=== PATIENT | male | born 1955 | race Caucasian/White ===

== ENCOUNTER 2020-05-04 11:01 | Emergency (ER) | payer OTHER ==
--- NOTE | 2020-05-04 11:13 | ERPHSYRPT ---
- History of Present Illness Time Seen by Provider: 05/04/20 11:13 Source: patient Exam Limitations: no limitations Physician History: This is a 64-year-old white male who has known exposure to his who was tested positive for COVID-19. In the last few days patient has had a mild cough. His biggest concern is the muscle and bony aches as well as a headache. He feels nausea but no vomiting. He had mild diarrhea that was short-lived on the first day of his symptoms. He has no chest pain. Timing/Duration: day(s) (Last couple of days) Severity: mild Associated Symptoms: shortness of breath (Mild), cough (Mild), headaches Allergies/Adverse Reactions: hydromorphone HCl [From Dilaudid] Adverse Reaction (Mild, Verified 07/16/12 08:11) Home Medications: Lansoprazole [Prevacid] 30 mg PO DAILY 07/16/12 [History] Tamsulosin HCl 0.4 mg [Flomax 0.4 MG] 0.4 mg PO HS 07/16/12 [History] Hx Tetanus, Diphtheria Vaccination/Date Given: Yes Hx Influenza Vaccination/Date Given: No Hx Pneumococcal Vaccination/Date Given: No Travel Risk - International Travel Have you traveled outside of the country in past 3 weeks: No - Coronavirus Screening Are you exhibiting any of the following symptoms?: Yes Symptoms: Cough: New Onset, Shortness of Breath, Headaches/Body Aches/Fatigue Close contact with a COVID-19 positive Pt in past 14-21 Days: No - Review of Systems Constitutional: No Symptoms Eyes: No Symptoms Ears, Nose, & Throat: No Symptoms Respiratory: Cough, Dyspnea (Mild) Cardiac: No Symptoms Abdominal/Gastrointestinal: No Symptoms Genitourinary Symptoms: No Symptoms Musculoskeletal: Arthralgias, Myalgias Skin: No Symptoms Neurological: No Symptoms Psychological: No Symptoms Endocrine: No Symptoms Hematologic/Lymphatic: No Symptoms Immunological/Allergic: No Symptoms All Other Systems: Reviewed and Negative - Past Medical History Pertinent Past Medical History: Yes Neurological History: No Pertinent History ENT History: Other (see history of present illness) Cardiac History: No Pertinent History Respiratory History: No Pertinent History Endocrine Medical History: No Pertinent History Musculoskeletal History: No Pertinent History GI Medical History: No Pertinent History History: No Pertinent History Psycho-Social History: No Pertinent History Male Reproductive Disorders: Prostate Problems - Past Surgical History Past Surgical History: No - Social History Smoking Status: Never smoker Drug Use: none Patient Lives Alone: No - Nursing Vital Signs Nursing Vital Signs: Initial Vital Signs Temperature 98.9 F 05/04/20 11:19 Pulse Rate 72 05/04/20 11:19 Respiratory Rate 22 05/04/20 11:19 Blood Pressure 140/77 05/04/20 11:19 O2 Sat by Pulse Oximetry 96 05/04/20 11:19 Pain Scale Pain Intensity 4 - Physical Exam General Appearance: no apparent distress, alert Eye Exam: PERRL/EOMI, eyes nml inspection Ears, Nose, Throat Exam: normal ENT inspection, moist mucous membranes Neck Exam: normal inspection, non-tender, supple, full range of motion Respiratory Exam: normal breath sounds, lungs clear, airway intact, No chest tenderness, No respiratory distress Cardiovascular Exam: regular rate/rhythm, normal heart sounds, normal peripheral pulses Gastrointestinal/Abdomen Exam: soft, normal bowel sounds, No tenderness Rectal Exam: not done Back Exam: normal inspection, normal range of motion, No CVA tenderness, No vertebral tenderness Extremity Exam: normal inspection, normal range of motion, pelvis stable Neurologic Exam: alert, oriented x 3, cooperative, butcher fish II-XII nml as tested, normal mood/affect, nml cerebellar function, nml station & gait, sensation nml Skin Exam: normal color, warm, dry Lymphatic Exam: No adenopathy SpO2 Interpretation: normal O2 Delivery: Room Air - Course Nursing assessment & vital signs reviewed: Yes EKG Interpreted by Me: RATE (66), Other (Ventricular premature complex.) Ordered Tests: Active Orders 24 hr Category Date Time Status Roller Operator STAT Care 05/04/20 11:32 Active EKG-ER Only STAT Care 05/04/20 11:32 Active IV Insertion STAT Care 05/04/20 11:32 Active Isolation, Initiate & Maintain STAT Care 05/04/20 11:32 Active Pulse Oximetry (ED) ROUTINE Care 05/04/20 11:32 Active CHEST 1 VIEW (PORTABLE) Stat Exams 05/04/20 11:33 Completed CHEST WITH CONTRAST [CT] Stat Exams 05/04/20 13:33 Completed BLOOD CULTURE Stat Lab 05/04/20 12:16 Received CBC W DIFF Stat Lab 05/04/20 12:16 Completed CMP Stat Lab 05/04/20 12:16 Completed D-DIMER QUANTITATIVE Stat Lab 05/04/20 12:16 Completed Ferritin Stat Lab 05/04/20 12:16 Completed INFLUENZA A+B BARNEY Stat Lab 05/04/20 12:16 Completed LDH-LACTATE DEHYDROGENASE Stat Lab 05/04/20 12:16 Completed Lactic Acid Stat Lab 05/04/20 12:16 Completed Coffey Screen Stat Lab 05/04/20 12:16 Completed PROTIME WITH INR Stat Lab 05/04/20 12:16 Completed TROPONIN Q3H Lab 05/04/20 12:16 Completed TROPONIN Q3H Lab 05/04/20 14:47 Completed TROPONIN Q3H Lab 05/04/20 17:45 Ordered TROPONIN Q3H Lab 05/04/20 20:45 Ordered TROPONIN Q3H Lab 05/04/20 23:45 Ordered Medication Summary Discontinued Medications Generic Name Dose Route Start Last Admin Trade Name Freq PRN Reason Stop Dose Admin Sodium Chloride 1,000 mls @ 999 mls/hr 05/04/20 11:33 05/04/20 13:29 Sodium Chloride 0.9% 1000 Ml IV 05/04/20 12:33 Infused .Q1H1M STA Infusion Sodium Chloride Confirm 05/04/20 13:37 Sodium Chloride 0.9% 1000 Ml Administered 05/04/20 13:38 Dose 1,000 mls @ ud .ROUTE .STK-MED ONE Meperidine HCl 25 mg 05/04/20 13:32 05/04/20 13:42 Demerol 25mg Syringe IV 05/04/20 13:33 25 mg STAT ONE Administration Meperidine HCl Confirm 05/04/20 13:37 Demerol 25mg Syringe Administered 05/04/20 13:38 Dose 25 mg .ROUTE .STK-MED ONE Meperidine HCl 25 mg 05/04/20 15:35 05/04/20 15:52 Demerol 25mg Syringe IV 05/04/20 15:36 25 mg STAT ONE Administration Meperidine HCl Confirm 05/04/20 15:51 Demerol 25mg Syringe Administered 05/04/20 15:52 Dose 25 mg .ROUTE .STK-MED ONE Ondansetron HCl 4 mg 05/04/20 13:31 05/04/20 13:41 Zofran 4 Mg/2 Ml Vial IV 05/04/20 13:32 4 mg STAT ONE Administration Ondansetron HCl Confirm 05/04/20 13:36 Zofran 4 Mg/2 Ml Vial Administered 05/04/20 13:37 Dose 4 mg .ROUTE .STK-MED ONE Lab/Rad Data: Laboratory Result Diagrams 05/04/20 12:16 05/04/20 12:16 Laboratory Results 05/04/20 05/04/20 05/04/20 Range/Units 14:47 12:16 12:16 WBC (4.0-10.5) K/mm3 RBC (4.1-5.6) M/mm3 Hgb (12.5-18.0) gm/dl Hct (42-50) % MCV (78-100) fl MCH (26-32) pg MCHC (32-36) g/dl RDW (11.5-14.0) % Plt Count (150-450) K/mm3 MPV (7.5-11.0) fl Gran % (36.0-66.0) % Eos # (Auto) (0-0.5) Absolute Lymphs (auto) (1.0-4.6) Absolute Monos (auto) (0.0-1.3) Lymphocytes % (24.0-44.0) % Monocytes % (0.0-12.0) % Eosinophils % (0.00-5.0) % Basophils % (0.0-0.4) % Absolute Granulocytes (1.4-6.9) Basophils # (0-0.4) PT (8.83-12.87) SECONDS INR (0.8-3.0) D-Dimer (215-500) ng/mL Sodium (137-145) mmol/L Potassium (3.5-5.1) mmol/L Chloride (98-107) mmol/L Carbon Dioxide (22-30) mmol/L Anion Gap (5-15) MEQ/L BUN (9-20) mg/dL Creatinine (0.66-1.25) mg/dL Estimated GFR ML/MIN Glucose (74-106) mg/dL Lactic Acid (0.4-2.0) Calcium (8.4-10.2) mg/dL Ferritin 21.4 (17.9-464) ng/mL Total Bilirubin (0.2-1.3) mg/dL AST (17-59) U/L ALT (0-50) U/L Alkaline Phosphatase (38-126) U/L Lactate Dehydrogenase (120-246) U/L Troponin I < 0.012 (0.000-0.034) ng/mL Serum Total Protein (6.3-8.2) g/dL Albumin (3.5-5.0) g/dL Monoscreen POSITIVE (Negative) Influenza Type A Ag (NEGATIVE) Influenza Type B Ag (NEGATIVE) Group A Strep Antibody (NEGATIVE) Slides for Path Review 05/04/20 05/04/20 05/04/20 Range/Units 12:16 12:16 12:16 WBC (4.0-10.5) K/mm3 RBC (4.1-5.6) M/mm3 Hgb (12.5-18.0) gm/dl Hct (42-50) % MCV (78-100) fl MCH (26-32) pg MCHC (32-36) g/dl RDW (11.5-14.0) % Plt Count (150-450) K/mm3 MPV (7.5-11.0) fl Gran % (36.0-66.0) % Eos # (Auto) (0-0.5) Absolute Lymphs (auto) (1.0-4.6) Absolute Monos (auto) (0.0-1.3) Lymphocytes % (24.0-44.0) % Monocytes % (0.0-12.0) % Eosinophils % (0.00-5.0) % Basophils % (0.0-0.4) % Absolute Granulocytes (1.4-6.9) Basophils # (0-0.4) PT (8.83-12.87) SECONDS INR (0.8-3.0) D-Dimer (215-500) ng/mL Sodium (137-145) mmol/L Potassium (3.5-5.1) mmol/L Chloride (98-107) mmol/L Carbon Dioxide (22-30) mmol/L Anion Gap (5-15) MEQ/L BUN (9-20) mg/dL Creatinine (0.66-1.25) mg/dL Estimated GFR ML/MIN Glucose (74-106) mg/dL Lactic Acid (0.4-2.0) Calcium (8.4-10.2) mg/dL Ferritin (17.9-464) ng/mL Total Bilirubin (0.2-1.3) mg/dL AST (17-59) U/L ALT (0-50) U/L Alkaline Phosphatase (38-126) U/L Lactate Dehydrogenase (120-246) U/L Troponin I < 0.012 (0.000-0.034) ng/mL Serum Total Protein (6.3-8.2) g/dL Albumin (3.5-5.0) g/dL Monoscreen (Negative) Influenza Type A Ag NEGATIVE (NEGATIVE) Influenza Type B Ag NEGATIVE (NEGATIVE) Group A Strep Antibody NOT DETECTED (NEGATIVE) Slides for Path Review 05/04/20 05/04/20 05/04/20 Range/Units 12:16 12:16 12:16 WBC (4.0-10.5) K/mm3 RBC (4.1-5.6) M/mm3 Hgb (12.5-18.0) gm/dl Hct (42-50) % MCV (78-100) fl MCH (26-32) pg MCHC (32-36) g/dl RDW (11.5-14.0) % Plt Count (150-450) K/mm3 MPV (7.5-11.0) fl Gran % (36.0-66.0) % Eos # (Auto) (0-0.5) Absolute Lymphs (auto) (1.0-4.6) Absolute Monos (auto) (0.0-1.3) Lymphocytes % (24.0-44.0) % Monocytes % (0.0-12.0) % Eosinophils % (0.00-5.0) % Basophils % (0.0-0.4) % Absolute Granulocytes (1.4-6.9) Basophils # (0-0.4) PT 12.5 (8.83-12.87) SECONDS INR 1.11 (0.8-3.0) D-Dimer 651 H* (215-500) ng/mL Sodium 138 (137-145) mmol/L Potassium 4.4 (3.5-5.1) mmol/L Chloride 107 (98-107) mmol/L Carbon Dioxide 24 (22-30) mmol/L Anion Gap 12.0 (5-15) MEQ/L BUN 11 (9-20) mg/dL Creatinine 0.83 (0.66-1.25) mg/dL Estimated GFR > 60.0 ML/MIN Glucose 97 (74-106) mg/dL Lactic Acid 1.2 (0.4-2.0) Calcium 8.7 (8.4-10.2) mg/dL Ferritin (17.9-464) ng/mL Total Bilirubin 0.40 (0.2-1.3) mg/dL AST 40 (17-59) U/L ALT 47 (0-50) U/L Alkaline Phosphatase 111 (38-126) U/L Lactate Dehydrogenase 150 (120-246) U/L Troponin I (0.000-0.034) ng/mL Serum Total Protein 6.6 (6.3-8.2) g/dL Albumin 3.7 (3.5-5.0) g/dL Monoscreen (Negative) Influenza Type A Ag (NEGATIVE) Influenza Type B Ag (NEGATIVE) Group A Strep Antibody (NEGATIVE) Slides for Path Review 05/04/20 Range/Units 12:16 WBC 6.1 (4.0-10.5) K/mm3 RBC 4.56 (4.1-5.6) M/mm3 Hgb 13.9 (12.5-18.0) gm/dl Hct 40.5 L (42-50) % MCV 88.8 (78-100) fl MCH 30.5 (26-32) pg MCHC 34.3 (32-36) g/dl RDW 12.7 (11.5-14.0) % Plt Count 214 (150-450) K/mm3 MPV 10.2 (7.5-11.0) fl Gran % 72.1 H (36.0-66.0) % Eos # (Auto) 0.05 (0-0.5) Absolute Lymphs (auto) 0.57 L (1.0-4.6) Absolute Monos (auto) 1.05 (0.0-1.3) Lymphocytes % 9.4 L (24.0-44.0) % Monocytes % 17.2 H (0.0-12.0) % Eosinophils % 0.8 (0.00-5.0) % Basophils % 0.5 (0.0-0.4) % Absolute Granulocytes 4.39 (1.4-6.9) Basophils # 0.03 (0-0.4) PT (8.83-12.87) SECONDS INR (0.8-3.0) D-Dimer (215-500) ng/mL Sodium (137-145) mmol/L Potassium (3.5-5.1) mmol/L Chloride (98-107) mmol/L Carbon Dioxide (22-30) mmol/L Anion Gap (5-15) MEQ/L BUN (9-20) mg/dL Creatinine (0.66-1.25) mg/dL Estimated GFR ML/MIN Glucose (74-106) mg/dL Lactic Acid (0.4-2.0) Calcium (8.4-10.2) mg/dL Ferritin (17.9-464) ng/mL Total Bilirubin (0.2-1.3) mg/dL AST (17-59) U/L ALT (0-50) U/L Alkaline Phosphatase (38-126) U/L Lactate Dehydrogenase (120-246) U/L Troponin I (0.000-0.034) ng/mL Serum Total Protein (6.3-8.2) g/dL Albumin (3.5-5.0) g/dL Monoscreen (Negative) Influenza Type A Ag (NEGATIVE) Influenza Type B Ag (NEGATIVE) Group A Strep Antibody (NEGATIVE) Slides for Path Review YES - Progress Progress: improved, pain not gone completely, re-examined Progress Note: 05/04/20 13:31 Chest x-ray shows no acute cardiopulmonary process. 05/04/20 16:38 CAT scan of the chest with intravenous contrast is negative for pulmonary embolus. There is a small patchy left upper lobe airspace disease. There is to intermittent right lower lobe noncalcified micronodule. This finding was discussed with the patient. Counseled pt/family regarding: lab results, diagnosis, need for follow-up, rad results - Departure Departure Disposition: Home Clinical Impression: Mononucleosis, Headache, Left upper lobe pulmonary infiltrate Condition: Stable Critical Care Time: No Referrals: DULCE MARIA MACHADO [Primary Care Provider] - Additional Instructions: Drink plenty of fluids. Use ibuprofen for pain control as well as fever control. Quarantine yourself until you find out the results of your COVID-19 test. You will get a call from your primary care physician most likely in the early part of next week. Prescriptions: Hydrocodone/Acetaminophen [Hydrocodone-Acetamn 7.5-325/15] 10 ml PO Q8H PRN PRN #120 solution MDD 30 ml PRN Reason: Cough Levofloxacin [Levaquin 500 MG Tablet] 500 mg PO DAILY #7 tablet
[2020-05-04] MEDS ORDERED: Sodium Chloride 0.9% 1000 ML 1,000 ML IV STA (11:33)
--- NOTE | 2020-05-04 12:14 | XRAY ---
Indication: Cough, congestion, and short of breath. Suspect Covid 19 exposure. Comparison: July 16, 2012. Portable chest again demonstrates normal heart and lungs. Bony thorax intact. No new/acute findings.
[2020-05-04 12:19] LABS: Absolute Neutrophil Ct (ANC) 4.39 (1.4-6.9); BASOPHIL % 0.5 % (0.0-0.4); Basophil (Absolute #) 0.03 (0-0.4); Eosinophil % 0.8 % (0.00-5.0); Eosinophil (Absolute #) 0.05 (0-0.5); Hematocrit 40.5 % (42-50); Hemoglobin 13.9 gm/dl (12.5-18.0); Lymphocyte (Absolute #) 0.57 (1.0-4.6); Lymphocytes % 9.4 % (24.0-44.0); Mean Cell Volume 88.8 fl (78-100); Mean Corpuscular Hemoglobin 30.5 pg (26-32); Mean Corpuscular Hgb Concent. 34.3 g/dl (32-36); Mean Platelet Volume 10.2 fl (7.5-11.0); Monocyte (Absolute #) 1.05 (0.0-1.3); Monocytes % 17.2 % (0.0-12.0); Neutrophil % 72.1 % (36.0-66.0); Platelet Count 214 K/mm3 (150-450); Red Blood Count 4.56 M/mm3 (4.1-5.6); Red Cell Distribution Width 12.7 % (11.5-14.0); White Blood Count 6.1 K/mm3 (4.0-10.5)
[2020-05-04 12:34] LABS: INR 1.11 (0.8-3.0); PROTIME 12.5 SECONDS (8.83-12.87)
[2020-05-04 12:41] LABS: INFLUENZA A NEGATIVE (NEGATIVE); INFLUENZA B NEGATIVE (NEGATIVE)
[2020-05-04 12:43] LABS: ALBUMIN 3.7 g/dL (3.5-5.0); ALKALINE PHOSPHATASE 111 U/L (38-126); BLOOD UREA NITROGEN 11 mg/dL (9-20); CHLORIDE 107 mmol/L (98-107); Calcium 8.7 mg/dL (8.4-10.2); Carbon Dioxide 24 mmol/L (22-30); Creatinine 1 0.83 mg/dL (0.66-1.25); EST GLOMERULAR FILTRATION RATE > 60.0 ML/MIN; Glucose 97 mg/dL (74-106); LDH-LACTATE DEHYDROGENASE 150 U/L (120-246); Potassium 4.4 mmol/L (3.5-5.1); SGOT/AST 40 U/L (17-59); SGPT/ALT 47 U/L (0-50); SODIUM 138 mmol/L (137-145); Total Protein 6.6 g/dL (6.3-8.2)
[2020-05-04] MEDS ORDERED: Zofran 4 MG/2 ML VIAL IV ONE (13:31)
[2020-05-04] MEDS ORDERED: DEMEROL 25MG SYRINGE IV ONE ×2 (13:32→15:35)
[2020-05-04] MEDS ORDERED: Zofran 4 MG/2 ML VIAL ONE (13:36)
[2020-05-04] MEDS ORDERED: DEMEROL 25MG SYRINGE ONE ×2 (13:37→15:51)
[2020-05-04] MEDS ORDERED: Sodium Chloride 0.9% 1000 ML 1,000 ML ONE (13:37)
[2020-05-04 13:46] LABS: Slide Review 1 YES
[2020-05-04 15:34] VITALS: BP 126/80; PULSE 65; O2SAT 98
--- NOTE | 2020-05-04 16:27 | XRAY ---
Indication: Cough and short of breath. Elevated d-dimer. Multiple contiguous axial images obtained through the chest using 100 cc Isovue 370 contrast and PE protocol. Comparison: None There is good opacification of the pulmonary arteries including lobar and segmental branches. No pulmonary embolus. Heart is not enlarged. Aorta is normal in course and caliber. No pathologic mediastinal/hilar lymphadenopathy. Lungs hyperinflated with minimal bilateral dependent atelectasis and minimal left base fibrosis/scarring. Peripheral left upper lobe demonstrate small 2 cm focus of patchy airspace disease. Right lower lobe demonstrates two indeterminant 5-6 mm noncalcified nodules with irregular margins adjacent to the major fissure. No consolidation or effusion. Bony thorax intact with minimal degenerative changes throughout the spine. Limited upper abdomen demonstrates mild fatty liver and 6 mm hepatic cyst. Impression: 1. Negative pulmonary embolus. 2. Small patchy left upper lobe airspace disease. 3. Two indeterminant right lower lobe noncalcified micronodules. Outside comparison studies recommended if available. If not, recommend follow-up per Fleischner guidelines. 4. Incidental fatty liver and tiny hepatic cyst.
== END 2020-05-04 17:01 | disposition home or self-care (01) ==
LOC: ED 11:01
DX: B27.90 Infectious mononucleosis, unspecified without complication (principal); R51.9 Headache, unspecified; R91.8 Other nonspecific abnormal finding of lung field
CPT/HCPCS: 36000; 36415; 71045; 71260; 80053; 82728; 83605; 83615; 84484; 85025; 85379; 85610; 86308; 87040; 87400; 87651; 93005; 93041; 94760; 96360; 96374; 96375; 96376; 99285; U0003; J2175; J2405

== ENCOUNTER 2020-06-23 14:36 | Emergency (ER) | payer OTHER ==
[2020-06-23] MEDS ORDERED: Catapres 0.1 MG PO ONE (15:03)
--- NOTE | 2020-06-23 15:24 | XRAY ---
Indication: Chest discomfort. Comparison: May 04, 2020. Portable chest again demonstrates normal heart and lungs. Bony thorax intact. No new/acute findings.
[2020-06-23 15:30] LABS: Absolute Neutrophil Ct (ANC) 4.14 (1.4-6.9); BASOPHIL % 0.7 % (0.0-0.4); Basophil (Absolute #) 0.04 (0-0.4); Eosinophil % 1.1 % (0.00-5.0); Eosinophil (Absolute #) 0.07 (0-0.5); Hematocrit 41.6 % (42-50); Hemoglobin 13.8 gm/dl (12.5-18.0); Lymphocyte (Absolute #) 1.23 (1.0-4.6); Lymphocytes % 20.1 % (24.0-44.0); Mean Cell Volume 88.5 fl (78-100); Mean Corpuscular Hemoglobin 29.4 pg (26-32); Mean Corpuscular Hgb Concent. 33.2 g/dl (32-36); Monocyte (Absolute #) 0.63 (0.0-1.3); Monocytes % 10.3 % (0.0-12.0); Neutrophil % 67.8 % (36.0-66.0); Platelet Count 304 K/mm3 (150-450); Red Cell Distribution Width 13.4 % (11.5-14.0); White Blood Count 6.1 K/mm3 (4.0-10.5)
[2020-06-23 15:43] LABS: ALKALINE PHOSPHATASE 91 U/L (38-126); BLOOD UREA NITROGEN 15 mg/dL (9-20); CHLORIDE 105 mmol/L (98-107); Calcium 8.9 mg/dL (8.4-10.2); Carbon Dioxide 27 mmol/L (22-30); Creatinine 1 0.87 mg/dL (0.66-1.25); EST GLOMERULAR FILTRATION RATE > 60.0 ML/MIN; Glucose 95 mg/dL (74-106); SGOT/AST 30 U/L (17-59); SGPT/ALT 24 U/L (0-50); SODIUM 138 mmol/L (137-145); Total Protein 7.1 g/dL (6.3-8.2)
--- NOTE | 2020-06-23 15:48 | ERPHSYRPT ---
- History of Present Illness Historian: patient Exam Limitations: no limitations Patient Subjective Stated Complaint: chest pain with hypertension Triage Nursing Assessment: Pt drove self to the ER, vitals wnl, rates chest pain as 2-3/10, pulses normal, denies any new stressors, denies previous htn, skin n/w/d, doesn't appear to be in any distress Physician History: 65 yo wm w "chest tightness" x 3days that is mid-sternal wo radiation. He has mild nausea/dyspnea wo vomiting/diaphoresis. Pt is worried that his BP has been elevated but has no h/o HTN. Also denied were hyperlipidemia/DM/CAD-DE/family h/o CAD/tobacco use. He had CV19 around Thanksgiving but has recovered. Pt denies cough/fever. Timing/Duration: other (3 days) Quality: tightness Location: central Chest Pain Radiation: no radiation Severity of Pain-Max: moderate Severity of Pain-Current: mild Modifying Factors: Improves With: other (Worse w rest) Associated Symptoms: nausea, shortness of breath, No vomiting, No palpitations, No heartburn, No abdominal pain, No cough, No hurts to breathe, No diaphoresis, No chills, No fever, No fatigue, No weakness, No swelling/lump in chest, No syncope, No rash, No headache, No dizziness, No edema, No back pain Prior Chest Pain/Cardiac Workup: stress test Nitro Today/Relief: no nitro taken today Aspirin Treatment Today: no aspirin today Allergies/Adverse Reactions: hydromorphone HCl [From Dilaudid] Adverse Reaction (Mild, Verified 06/23/20 14:48) Home Medications: Tamsulosin HCl 0.4 mg [Flomax 0.4 MG] 0.4 mg PO HS 07/16/12 [History] Ergocalciferol (Vitamin D2) [Vitamin D2] 1,250 mcg PO DAILY 06/23/20 [History] Methimazole [Tapazole] 2.5 mg PO DAILY 06/23/20 [History] Multivitamin/Iron/Folic Acid [Cerovite Advanced Form Tab] 1 tab PO DAILY 06/23/20 [History] Omeprazole 40 mg PO DAILY 06/23/20 [History] Hx Tetanus, Diphtheria Vaccination/Date Given: Yes Hx Influenza Vaccination/Date Given: No Hx Pneumococcal Vaccination/Date Given: No Travel Risk - International Travel Have you traveled outside of the country in past 3 weeks: No - Coronavirus Screening Are you exhibiting any of the following symptoms?: No Close contact with a COVID-19 positive Pt in past 14-21 Days: No - Review of Systems Constitutional: No Symptoms Eyes: No Symptoms Ears, Nose, & Throat: No Symptoms Respiratory: No Symptoms Cardiac: Chest Pain, No Edema, No Palpitations, No Syncope, No Orthopnea, No PND Abdominal/Gastrointestinal: Nausea, No Abdominal Pain, No Vomiting, No Diarrhea, No Constipation, No Hematemesis, No Hematochezia, No Melena, No Dysphagia, No Appetite Changes Genitourinary Symptoms: No Dysuria, No Frequency, No Hematuria, No Hesitancy, No Incontinence, No Urgency, No Urinary Retention, No Flank Pain, No Testicle Pain, No Penile Discharge Musculoskeletal: No Arthralgias, No Back Pain, No Neck Pain, No Deformity, No Fall, No Injury, No Joint Redness, No Joint Pain, No Joint Swelling, No Myalgias Skin: No Cellulitis, No Decubiti, No Induration, No Pruritis, No Rash, No Skin Lesions, No Dryness Neurological: No Dizziness, No Focal Weakness, No Gait Changes, No Headache, No Irritability, No Lethargy, No Paralysis, No Parasthesia, No Seizure, No Sensory Changes, No Speech Changes, No Tics, No Tremors, No Vertigo Psychological: No Alcohol Abuse, No Drug Abuse, No Anxiety, No Depression, No Suicidal Ideations, No Homicidal Ideations, No Emotional Lability, No Hallucinations, No Memory Loss, No Mood Changes Endocrine: No Polyuria, No Polydipsia, No Hair Changes, No Cold Intolerance, No Excessive Sweating, No Goiter Hematologic/Lymphatic: No Anemia, No Blood Clots, No Easy Bleeding, No Gum Bleeding, No Easy Bruising, No Adenopathy Immunological/Allergic: No Eczema, No Food Allergy, No Grass Allergy, No Mold Allergy, No Pollen Allergy, No HIV/AIDS, No Transplant - Past Medical History Pertinent Past Medical History: Yes Neurological History: No Pertinent History ENT History: Other Cardiac History: No Pertinent History Respiratory History: No Pertinent History Endocrine Medical History: No Pertinent History Musculoskeletal History: No Pertinent History GI Medical History: No Pertinent History History: No Pertinent History Psycho-Social History: No Pertinent History Male Reproductive Disorders: Prostate Problems - Past Surgical History Past Surgical History: No - Social History Smoking Status: Former smoker Exposure to second hand smoke: No Drug Use: none Patient Lives Alone: No Significant Family History: no pertinent family hx - Nursing Vital Signs Nursing Vital Signs: Initial Vital Signs Temperature 97.7 F 06/23/20 14:38 Pulse Rate 60 06/23/20 14:38 Blood Pressure 143/90 06/23/20 14:38 O2 Sat by Pulse Oximetry 98 06/23/20 14:38 Pain Scale Pain Intensity 0 - Physical Exam General Appearance: no apparent distress, anxiety Eye Exam: PERRL/EOMI, eyes nml inspection Ears, Nose, Throat Exam: normal ENT inspection, TMs normal, pharynx normal, moist mucous membranes Neck Exam: normal inspection, non-tender, supple, full range of motion, No meningismus, No mass, No Brudzinski, No Kernig's, No carotid bruit Respiratory Exam: normal breath sounds, lungs clear, airway intact, No respiratory distress Cardiovascular Exam: regular rate/rhythm, normal heart sounds, normal peripheral pulses, capillary refill <2 sec, No murmur Gastrointestinal/Abdomen Exam: soft, normal bowel sounds, No tenderness Back Exam: normal inspection, normal range of motion, No CVA tenderness, No vertebral tenderness Extremity Exam: normal inspection, normal range of motion Neurologic Exam: alert, oriented x 3, cooperative, non destructive testing scientist II-XII nml as tested, normal mood/affect, nml cerebellar function, nml station & gait, sensation nml, No motor deficits, No sensory deficit, No disoriented Skin Exam: normal color, warm, dry, No rash Lymphatic Exam: No adenopathy SpO2 Interpretation: normal SpO2: 98 O2 Delivery: Room Air - Course Nursing assessment & vital signs reviewed: Yes EKG Interpreted by Me: RATE (Sinus javy/R56/Normal QT-QTc/Tall R wave V2/No ST changes) - Radiology Exams Chest X-ray Interpretation: Discussed w/ radiologist (NAD) - CT Exams Chest CT Interpretation: Discussed w/radiologist (CTA chest-no PE/Subtle B/L ground glass appearance) Ordered Tests: Active Orders 24 hr Category Date Time Status Ice Cream Mixer STAT Care 06/23/20 15:02 Completed EKG-ER Only STAT Care 06/23/20 15:02 Completed IV Insertion STAT Care 06/23/20 15:02 Completed CHEST 1 VIEW (PORTABLE) Stat Exams 06/23/20 15:02 Completed CHEST WITH CONTRAST [CT] Stat Exams 06/23/20 16:44 Taken CBC W DIFF Stat Lab 06/23/20 15:25 Completed CMP Stat Lab 06/23/20 15:25 Completed D-DIMER QUANTITATIVE Stat Lab 06/23/20 15:25 Completed NT PRO BNP Stat Lab 06/23/20 15:25 Completed TROPONIN Q3H Lab 06/23/20 15:25 Completed Medication Summary Discontinued Medications Generic Name Dose Route Start Last Admin Trade Name Freq PRN Reason Stop Dose Admin Clonidine 0.2 mg 06/23/20 15:03 06/23/20 15:13 Catapres 0.1 Mg PO 06/23/20 15:04 Not Given STAT ONE Lab/Rad Data: Laboratory Result Diagrams 06/23/20 15:25 06/23/20 15:25 Laboratory Results 06/23/20 06/23/20 06/23/20 Range/Units 15:25 15:25 15:25 WBC (4.0-10.5) K/mm3 RBC (4.1-5.6) M/mm3 Hgb (12.5-18.0) gm/dl Hct (42-50) % MCV (78-100) fl MCH (26-32) pg MCHC (32-36) g/dl RDW (11.5-14.0) % Plt Count (150-450) K/mm3 MPV (7.5-11.0) fl Gran % (36.0-66.0) % Eos # (Auto) (0-0.5) Absolute Lymphs (auto) (1.0-4.6) Absolute Monos (auto) (0.0-1.3) Lymphocytes % (24.0-44.0) % Monocytes % (0.0-12.0) % Eosinophils % (0.00-5.0) % Basophils % (0.0-0.4) % Absolute Granulocytes (1.4-6.9) Basophils # (0-0.4) D-Dimer 738 H* (215-500) ng/mL Sodium 138 (137-145) mmol/L Potassium 4.4 (3.5-5.1) mmol/L Chloride 105 (98-107) mmol/L Carbon Dioxide 27 (22-30) mmol/L Anion Gap 10.4 (5-15) MEQ/L BUN 15 (9-20) mg/dL Creatinine 0.87 (0.66-1.25) mg/dL Estimated GFR > 60.0 ML/MIN Glucose 95 (74-106) mg/dL Calcium 8.9 (8.4-10.2) mg/dL Total Bilirubin 0.60 (0.2-1.3) mg/dL AST 30 (17-59) U/L ALT 24 (0-50) U/L Alkaline Phosphatase 91 (38-126) U/L Troponin I < 0.012 (0.000-0.034) ng/mL NT-Pro-B Natriuret Pep 35.0 (0-900) pg/mL Serum Total Protein 7.1 (6.3-8.2) g/dL Albumin 4.0 (3.5-5.0) g/dL 06/23/20 Range/Units 15:25 WBC 6.1 (4.0-10.5) K/mm3 RBC 4.70 (4.1-5.6) M/mm3 Hgb 13.8 (12.5-18.0) gm/dl Hct 41.6 L (42-50) % MCV 88.5 (78-100) fl MCH 29.4 (26-32) pg MCHC 33.2 (32-36) g/dl RDW 13.4 (11.5-14.0) % Plt Count 304 (150-450) K/mm3 MPV 10.0 (7.5-11.0) fl Gran % 67.8 H (36.0-66.0) % Eos # (Auto) 0.07 (0-0.5) Absolute Lymphs (auto) 1.23 (1.0-4.6) Absolute Monos (auto) 0.63 (0.0-1.3) Lymphocytes % 20.1 L (24.0-44.0) % Monocytes % 10.3 (0.0-12.0) % Eosinophils % 1.1 (0.00-5.0) % Basophils % 0.7 (0.0-0.4) % Absolute Granulocytes 4.14 (1.4-6.9) Basophils # 0.04 (0-0.4) D-Dimer (215-500) ng/mL Sodium (137-145) mmol/L Potassium (3.5-5.1) mmol/L Chloride (98-107) mmol/L Carbon Dioxide (22-30) mmol/L Anion Gap (5-15) MEQ/L BUN (9-20) mg/dL Creatinine (0.66-1.25) mg/dL Estimated GFR ML/MIN Glucose (74-106) mg/dL Calcium (8.4-10.2) mg/dL Total Bilirubin (0.2-1.3) mg/dL AST (17-59) U/L ALT (0-50) U/L Alkaline Phosphatase (38-126) U/L Troponin I (0.000-0.034) ng/mL NT-Pro-B Natriuret Pep (0-900) pg/mL Serum Total Protein (6.3-8.2) g/dL Albumin (3.5-5.0) g/dL - Progress Progress: improved Progress Note: 06/23/20 18:06 BP stable and wnl during stay. Counseled pt/family regarding: lab results, diagnosis, need for follow-up, rad results - Departure Departure Disposition: Home Clinical Impression: Chest pain Condition: Stable Critical Care Time: No Referrals: DULCE MARIA MACHADO [Primary Care Provider] - Instructions: Chest Pain (DC) Additional Instructions: Follow up with your family MD in 1-2 days Return to ER for increasing pain/shortness of breath/temperature greater than 100.5
[2020-06-23 16:35] LABS: Potassium 4.4 mmol/L (3.5-5.1)
[2020-06-23 16:36] LABS: ANION GAP 10.4 MEQ/L (5-15)
[2020-06-23 18:31] VITALS: BP 168/86; PULSE 68
[2020-06-23 21:08] VITALS: O2SAT 98
--- NOTE | 2020-06-24 08:37 | XRAY ---
Indication: Chest pain, elevated blood pressure, and elevated d-dimer. Multiple contiguous images obtained through the chest using 99 cc Isovue 370 contrast and PE protocol. Comparison: May 04, 2020. There is good opacification of the pulmonary arteries to include the lobar and segmental branches. No pulmonary embolus. Heart is not enlarged. Aorta is normal in course and caliber. No pathologic mediastinal/hilar lymphadenopathy. Lungs remain hyperinflated again with mild bilateral dependent atelectasis and 2 indeterminant noncalcified micronodules along the right major fissure. There is now subtle patchy groundglass peripheral airspace disease bilaterally. No consolidation or effusion. Bony thorax intact again with minimal degenerative changes throughout the spine. Limited upper abdomen again demonstrates fatty liver and tiny hepatic cysts. Impression: 1. Continue negative pulmonary embolus. 2. Subtle patchy ground glass peripheral airspace disease bilaterally. 3. Stable fatty liver and hepatic cyst.
== END 2020-06-23 18:32 | disposition home or self-care (01) ==
LOC: ED 14:36
DX: R07.89 Other chest pain (principal); I10 Essential (primary) hypertension; R11.0 Nausea; R06.00 Dyspnea, unspecified; Z79.899 Other long term (current) drug therapy
CPT/HCPCS: 36000; 36415; 71045; 71260; 80053; 83880; 84484; 85025; 85379; 93005; 93041; 99284

== ENCOUNTER 2021-02-20 12:54 | Emergency (ER) | payer OTHER ==
[2021-02-20] MEDS ORDERED: Sodium Chloride 0.9% 1000 ML 1,000 ML IV STA (14:45)
[2021-02-20 14:53] LABS: Absolute Neutrophil Ct (ANC) 6.91 (1.4-6.9); BASOPHIL % 0.3 % (0.0-0.4); Basophil (Absolute #) 0.03 (0-0.4); Eosinophil (Absolute #) 0.09 (0-0.5); Hematocrit 41.3 % (42-50); Hemoglobin 13.6 gm/dl (12.5-18.0); Lymphocyte (Absolute #) 0.74 (1.0-4.6); Lymphocytes % 8.3 % (24.0-44.0); Mean Cell Volume 90.2 fl (78-100); Mean Corpuscular Hemoglobin 29.7 pg (26-32); Mean Corpuscular Hgb Concent. 32.9 g/dl (32-36); Mean Platelet Volume 10.6 fl (7.5-11.0); Monocyte (Absolute #) 1.16 (0.0-1.3); Neutrophil % 77.4 % (36.0-66.0); Platelet Count 247 K/mm3 (150-450); Red Blood Count 4.58 M/mm3 (4.1-5.6); Red Cell Distribution Width 12.4 % (11.5-14.0); White Blood Count 8.9 K/mm3 (4.0-10.5)
[2021-02-20] MEDS ORDERED: TORAdol 30 mg Injection IV ONE (14:53)
--- NOTE | 2021-02-20 14:53 | ERPHSYRPT ---
- History of Present Illness Source: patient Exam Limitations: no limitations Patient Subjective Stated Complaint: Pt c/o of fever, headache, body aches, cough, SOB, diarrhea for approx 2 days but hasn't felt real well for the past couple of weeks, pt did have covid in April Triage Nursing Assessment: Pt brought self to the ER, hypertensive, rates overall pain as 8/10, pulses normal, decreased appetite, trying to drink fluids Physician History: 65 yo wm w cough/coryza/ST/myalgias/MITTAL/diarrhea wo N/V/dysuria/hematuria. Pt had CV19 04/29. Timing/Duration: yesterday Cough Quality/Degree: dry cough Modifying Factors: Improves With: coughing Associated Symptoms: chills, cough, headache, muscle aches, nasal congestion, sore throat, No fever Allergies/Adverse Reactions: hydromorphone HCl [From Dilaudid] Adverse Reaction (Mild, Verified 02/20/21 13:48) Home Medications: Tamsulosin HCl 0.4 mg [Flomax 0.4 MG] 0.4 mg PO HS 07/16/12 [History] Ergocalciferol (Vitamin D2) [Vitamin D2] 1,250 mcg PO DAILY 06/23/20 [History] Methimazole [Tapazole] 2.5 mg PO DAILY 06/23/20 [History] Multivitamin/Iron/Folic Acid [Cerovite Advanced Form Tab] 1 tab PO DAILY 06/23/20 [History] Omeprazole 40 mg PO DAILY 06/23/20 [History] Cetirizine HCl 10 mg PO DAILY 02/20/21 [History] Hx Tetanus, Diphtheria Vaccination/Date Given: Yes Hx Influenza Vaccination/Date Given: No Hx Pneumococcal Vaccination/Date Given: No Travel Risk - International Travel Have you traveled outside of the country in past 3 weeks: No - Coronavirus Screening Symptoms: Fever, Cough: New Onset, Shortness of Breath, Vomiting/Diarrhea, Head aches/Body Aches/Fatigue - Vaccine Status Have you recieved a Covid-19 vaccination: No - Review of Systems Constitutional: Chills, Lethargy Eyes: No Symptoms Ears, Nose, & Throat: No Symptoms, Nose Congestion, Throat Pain Respiratory: No Symptoms, Cough, Dyspnea Cardiac: No Symptoms Abdominal/Gastrointestinal: No Symptoms, Diarrhea Genitourinary Symptoms: No Symptoms Musculoskeletal: No Symptoms, Arthralgias, Myalgias Skin: No Symptoms Neurological: No Symptoms, Headache Psychological: No Symptoms Endocrine: No Symptoms Hematologic/Lymphatic: No Symptoms Immunological/Allergic: No Symptoms - Past Medical History Pertinent Past Medical History: Yes Neurological History: No Pertinent History ENT History: Other Cardiac History: No Pertinent History Respiratory History: No Pertinent History Endocrine Medical History: No Pertinent History Musculoskeletal History: No Pertinent History GI Medical History: No Pertinent History History: No Pertinent History Psycho-Social History: No Pertinent History Male Reproductive Disorders: Prostate Problems - Past Surgical History Past Surgical History: No - Social History Smoking Status: Former smoker Exposure to second hand smoke: No Drug Use: none Patient Lives Alone: No Significant Family History: no pertinent family hx - Nursing Vital Signs Nursing Vital Signs: Initial Vital Signs Temperature 98.5 F 02/20/21 13:41 Pulse Rate 79 02/20/21 13:41 Respiratory Rate 20 02/20/21 13:41 Blood Pressure 163/80 02/20/21 13:41 O2 Sat by Pulse Oximetry 100 02/20/21 13:41 Pain Scale Pain Intensity 5 Hypertensive - Physical Exam General Appearance: no apparent distress Eye Exam: PERRL/EOMI, eyes nml inspection Ears, Nose, Throat Exam: normal ENT inspection, TMs normal, pharynx normal, moist mucous membranes, TM abnormal (L) Neck Exam: non-tender, supple, full range of motion, No meningismus, No mass, No Brudzinski, No Kernig's Respiratory Exam: normal breath sounds, lungs clear, airway intact, No re spiratory distress Cardiovascular Exam: regular rate/rhythm, normal heart sounds Gastrointestinal/Abdomen Exam: soft, normal bowel sounds, tenderness Extremity Exam: normal inspection, normal range of motion Neurologic Exam: alert, oriented x 3, cooperative, ply bander II-XII nml as tested, normal mood/affect, nml cerebellar function, nml station & gait, sensation nml Skin Exam: normal color, warm, dry Lymphatic Exam: No adenopathy SpO2 Interpretation: normal SpO2: 100 O2 Delivery: Room Air - Course Nursing assessment & vital signs reviewed: Yes EKG Interpreted by Me: RATE (NSR/R76/Normal QT/No acute st changes) - Radiology Exams Chest X-ray Interpretation: Discussed w/ radiologist (AVINASH infiltrate) Ordered Tests: Active Orders 24 hr Category Date Time Status CHEST 1 VIEW (PORTABLE) Stat Exams 02/20/21 14:46 Completed CBC W DIFF Stat Lab 02/20/21 14:52 Completed CMP Stat Lab 02/20/21 14:52 Completed INFLUENZA A+B BARNEY Stat Lab 02/20/21 14:52 Completed Lactic Acid Stat Lab 02/20/21 14:47 Completed NT PRO BNP Stat Lab 02/20/21 14:52 Completed TROPONIN Q3H Lab 02/20/21 14:52 Completed Urine Triage Profile Stat Lab 02/20/21 15:05 Completed Medication Summary Discontinued Medications Generic Name Dose Route Start Last Admin Trade Name Freq PRN Reason Stop Dose Admin Sodium Chloride 1,000 mls @ 999 mls/hr 02/20/21 14:45 02/20/21 16:10 Sodium Chloride 0.9% 1000 Ml IV 02/20/21 15:45 Infused .Q1H1M STA Infusion Sodium Chloride Confirm 02/20/21 15:01 Sodium Chloride 0.9% 1000 Ml Administered 02/20/21 15:02 Dose 1,000 mls @ ud .ROUTE .STK-MED ONE Ceftriaxone Sodium/Dextrose 1 g in 50 mls @ 100 mls/hr 02/20/21 15:47 02/20/21 15:52 Rocephin 1 Gm-D5w 50 Ml Bag IV 02/20/21 16:16 100 mls/hr STAT STA 100 mls/hr Administration Ceftriaxone Sodium/Dextrose Confirm 02/20/21 15:50 Rocephin 1 Gm-D5w 50 Ml Bag Administered 02/20/21 15:51 Dose 1 g in 50 mls @ ud IV .STK-MED ONE Ketorolac Tromethamine 30 mg 02/20/21 14:53 02/20/21 15:03 Toradol 30 Mg Injection IV 02/20/21 14:54 30 mg STAT ONE Administration Ketorolac Tromethamine Confirm 02/20/21 15:00 Toradol 30 Mg Injection Administered 02/20/21 15:01 Dose 30 mg .ROUTE .STK-MED ONE Lab/Rad Data: Laboratory Result Diagrams 02/20/21 14:52 02/20/21 14:52 Laboratory Results 02/20/21 02/20/21 02/20/21 Range/Units 15:05 14:52 14:52 WBC (4.0-10.5) K/mm3 RBC (4.1-5.6) M/mm3 Hgb (12.5-18.0) gm/dl Hct (42-50) % MCV (78-100) fl MCH (26-32) pg MCHC (32-36) g/dl RDW (11.5-14.0) % Plt Count (150-450) K/mm3 MPV (7.5-11.0) fl Gran % (36.0-66.0) % Eos # (Auto) (0-0.5) Absolute Lymphs (auto) (1.0-4.6) Absolute Monos (auto) (0.0-1.3) Lymphocytes % (24.0-44.0) % Monocytes % (0.0-12.0) % Eosinophils % (0.00-5.0) % Basophils % (0.0-0.4) % Absolute Granulocytes (1.4-6.9) Basophils # (0-0.4) Sodium (137-145) mmol/L Potassium (3.5-5.1) mmol/L Chloride (98-107) mmol/L Carbon Dioxide (22-30) mmol/L Anion Gap (5-15) MEQ/L BUN (9-20) mg/dL Creatinine (0.66-1.25) mg/dL Estimated GFR ML/MIN Glucose (74-106) mg/dL Lactic Acid (0.4-2.0) Calcium (8.4-10.2) mg/dL Total Bilirubin (0.2-1.3) mg/dL AST (17-59) U/L ALT (0-50) U/L Alkaline Phosphatase (38-126) U/L Troponin I (0.000-0.034) ng/mL NT-Pro-B Natriuret Pep (0-900) pg/mL Serum Total Protein (6.3-8.2) g/dL Albumin (3.5-5.0) g/dL Urine Opiates Level NEGATIVE (NEGATIVE) Ur Methadone NEGATIVE (NEGATIVE) Urine Barbiturates NEGATIVE (NEGATIVE) Ur Phencyclidine (PCP) NEGATIVE (NEGATIVE) Urine Amphetamine NEGATIVE (NEGATIVE) U Benzodiazepine Level NEGATIVE (NEGATIVE) Urine Cocaine NEGATIVE (NEGATIVE) Urine Marijuana (THC) NEGATIVE (NEGATIVE) Influenza Type A Ag NEGATIVE (NEGATIVE) Influenza Type B Ag NEGATIVE (NEGATIVE) Group A Strep Antibody NOT DETECTED (NEGATIVE) 02/20/21 02/20/21 02/20/21 Range/Units 14:52 14:52 14:52 WBC 8.9 (4.0-10.5) K/mm3 RBC 4.58 (4.1-5.6) M/mm3 Hgb 13.6 (12.5-18.0) gm/dl Hct 41.3 L (42-50) % MCV 90.2 (78-100) fl MCH 29.7 (26-32) pg MCHC 32.9 (32-36) g/dl RDW 12.4 (11.5-14.0) % Plt Count 247 (150-450) K/mm3 MPV 10.6 (7.5-11.0) fl Gran % 77.4 H (36.0-66.0) % Eos # (Auto) 0.09 (0-0.5) Absolute Lymphs (auto) 0.74 L (1.0-4.6) Absolute Monos (auto) 1.16 (0.0-1.3) Lymphocytes % 8.3 L (24.0-44.0) % Monocytes % 13.0 H (0.0-12.0) % Eosinophils % 1.0 (0.00-5.0) % Basophils % 0.3 (0.0-0.4) % Absolute Granulocytes 6.91 H (1.4-6.9) Basophils # 0.03 (0-0.4) Sodium 138 (137-145) mmol/L Potassium 4.0 (3.5-5.1) mmol/L Chloride 103 (98-107) mmol/L Carbon Dioxide 26 (22-30) mmol/L Anion Gap 13.6 (5-15) MEQ/L BUN 13 (9-20) mg/dL Creatinine 0.95 (0.66-1.25) mg/dL Estimated GFR > 60.0 ML/MIN Glucose 144 H (74-106) mg/dL Lactic Acid (0.4-2.0) Calcium 9.0 (8.4-10.2) mg/dL Total Bilirubin 1.10 (0.2-1.3) mg/dL AST 62 H (17-59) U/L ALT 87 H (0-50) U/L Alkaline Phosphatase 145 H (38-126) U/L Troponin I < 0.012 (0.000-0.034) ng/mL NT-Pro-B Natriuret Pep 146 (0-900) pg/mL Serum Total Protein 7.3 (6.3-8.2) g/dL Albumin 4.1 (3.5-5.0) g/dL Urine Opiates Level (NEGATIVE) Ur Methadone (NEGATIVE) Urine Barbiturates (NEGATIVE) Ur Phencyclidine (PCP) (NEGATIVE) Urine Amphetamine (NEGATIVE) U Benzodiazepine Level (NEGATIVE) Urine Cocaine (NEGATIVE) Urine Marijuana (THC) (NEGATIVE) Influenza Type A Ag (NEGATIVE) Influenza Type B Ag (NEGATIVE) Group A Strep Antibody (NEGATIVE) 02/20/21 Range/Units 14:47 WBC (4.0-10.5) K/mm3 RBC (4.1-5.6) M/mm3 Hgb (12.5-18.0) gm/dl Hct (42-50) % MCV (78-100) fl MCH (26-32) pg MCHC (32-36) g/dl RDW (11.5-14.0) % Plt Count (150-450) K/mm3 MPV (7.5-11.0) fl Gran % (36.0-66.0) % Eos # (Auto) (0-0.5) Absolute Lymphs (auto) (1.0-4.6) Absolute Monos (auto) (0.0-1.3) Lymphocytes % (24.0-44.0) % Monocytes % (0.0-12.0) % Eosinophils % (0.00-5.0) % Basophils % (0.0-0.4) % Absolute Granulocytes (1.4-6.9) Basophils # (0-0.4) Sodium (137-145) mmol/L Potassium (3.5-5.1) mmol/L Chloride (98-107) mmol/L Carbon Dioxide (22-30) mmol/L Anion Gap (5-15) MEQ/L BUN (9-20) mg/dL Creatinine (0.66-1.25) mg/dL Estimated GFR ML/MIN Glucose (74-106) mg/dL Lactic Acid 1.9 (0.4-2.0) Calcium (8.4-10.2) mg/dL Total Bilirubin (0.2-1.3) mg/dL AST (17-59) U/L ALT (0-50) U/L Alkaline Phosphatase (38-126) U/L Troponin I (0.000-0.034) ng/mL NT-Pro-B Natriuret Pep (0-900) pg/mL Serum Total Protein (6.3-8.2) g/dL Albumin (3.5-5.0) g/dL Urine Opiates Level (NEGATIVE) Ur Methadone (NEGATIVE) Urine Barbiturates (NEGATIVE) Ur Phencyclidine (PCP) (NEGATIVE) Urine Amphetamine (NEGATIVE) U Benzodiazepine Level (NEGATIVE) Urine Cocaine (NEGATIVE) Urine Marijuana (THC) (NEGATIVE) Influenza Type A Ag (NEGATIVE) Influenza Type B Ag (NEGATIVE) Group A Strep Antibody (NEGATIVE) - Progress Air Movement: good Progress Note: 02/20/21 15:51 1L NS bolus 1gm IV rocephin Sars sent to lab Counseled pt/family regarding: lab results, diagnosis, need for follow-up, rad results - Departure Departure Disposition: Home Clinical Impression: Pneumonia Condition: Stable Critical Care Time: No Referrals: DULCE MARIA MACHADO [Primary Care Provider] - Instructions: Pneumonia, Adult (DC) Additional Instructions: Follow up with family MD in 1-2 days Start Augmentin twice a day for 10 days Zithromax 2tabs day 1, then 1 tab days 2-5 Fluids Return to ER for worsening cough, worsening shortness of breath, or temperature greater than 100.5 Prescriptions: Amoxicillin/Potassium Clav [Augmentin 875-125 Tablet] 1 each PO BID #20 tablet Azithromycin [Zithromax] 250 mg PO DAILY 5 Days #6 tablet
[2021-02-20] MEDS ORDERED: TORAdol 30 mg Injection ONE (15:00)
[2021-02-20] MEDS ORDERED: Sodium Chloride 0.9% 1000 ML 1,000 ML ONE (15:01)
--- NOTE | 2021-02-20 15:21 | XRAY ---
Indication: Cough. Suspect Covid 19. Comparison: June 23, 2020. Portable chest slightly underinflated with new moderate left upper lobe airspace disease. Remaining heart and lungs unremarkable. Bony thorax intact.
[2021-02-20 15:23] LABS: ALBUMIN 4.1 g/dL (3.5-5.0); ALKALINE PHOSPHATASE 145 U/L (38-126); ANION GAP 13.6 MEQ/L (5-15); BLOOD UREA NITROGEN 13 mg/dL (9-20); CHLORIDE 103 mmol/L (98-107); Carbon Dioxide 26 mmol/L (22-30); Creatinine 1 0.95 mg/dL (0.66-1.25); EST GLOMERULAR FILTRATION RATE > 60.0 ML/MIN; Glucose 144 mg/dL (74-106); NT PRO BNP 146 pg/mL (0-900); SGOT/AST 62 U/L (17-59); SGPT/ALT 87 U/L (0-50); SODIUM 138 mmol/L (137-145); Total Protein 7.3 g/dL (6.3-8.2)
[2021-02-20] MEDS ORDERED: ROCEPHIN 1 Gm-D5w 50 ml Bag** 1 G/50 ML IVPB IV STA (15:47)
[2021-02-20] MEDS ORDERED: ROCEPHIN 1 Gm-D5w 50 ml Bag** 1 G/50 ML IVPB IV ONE (15:50)
[2021-02-20 15:53] LABS: Amphetamine,Urine NEGATIVE (NEGATIVE); Barbiturate,Urine NEGATIVE (NEGATIVE); Benzodiazepine,Urine NEGATIVE (NEGATIVE); Cocaine,Urine NEGATIVE (NEGATIVE); Methadone,Urine NEGATIVE (NEGATIVE); Opiate,Urine NEGATIVE (NEGATIVE); PCP,Urine NEGATIVE (NEGATIVE); THC,Urine NEGATIVE (NEGATIVE)
[2021-02-20 16:17] VITALS: BP 133/70; PULSE 73
[2021-02-20 16:39] LABS: INFLUENZA A NEGATIVE (NEGATIVE); INFLUENZA B NEGATIVE (NEGATIVE)
[2021-02-20 20:37] VITALS: O2SAT 100
== END 2021-02-20 16:37 | disposition home or self-care (01) ==
LOC: ED 12:54
DX: J18.9 Pneumonia, unspecified organism (principal); R50.9 Fever, unspecified; R51.9 Headache, unspecified; M79.18 Myalgia, other site; R05 Cough; R19.7 Diarrhea, unspecified; R06.02 Shortness of breath; Z79.899 Other long term (current) drug therapy
CPT/HCPCS: 36415; 71045; 80053; 80307; 83605; 83880; 84484; 85025; 87400; 87651; 93005; 96360; 96365; 96374; 99284; U0003; J0696; J1885